=== PATIENT | female | born 2000 | race Caucasian/White ===

== ENCOUNTER → 2022-01-16 | Outpatient (CLI) | payer BC ==
[2022-01-16 18:26] LABS: Basophils # (A) 0.03 X 10*3/uL (0.00-0.10); Basophils % (A) 0.5 %; Eosinophils # (A) 0.33 X 10*3/uL (0.04-0.35); Eosinophils % (A) 5.2 %; HCT 50.5 % (37.2-46.3); HGB 15.8 g/dL (12.0-15.0); Immature Grans, Automated 0.2 %; Lymphocytes # (A) 2.45 X 10*3/uL (0.90-5.00); Lymphocytes % (A) 38.5 %; MCH 27.3 pg (27.0-32.0); MCHC 31.3 g/dL (32.0-37.0); MCV 87.4 fL (80.0-97.0); Mean Platelet Volume 9.4 fL (9.5-12.2); Monocytes # (A) 0.63 X 10*3/uL (0.20-1.00); Monocytes % (A) 9.9 %; NRBC Per 100 WBC 0 /100 WBCS (0.0-0.0); Neutrophils # (A) 2.91 X 10*3/uL (1.80-7.70); Neutrophils % (A) 45.7 %; Platelet Count 305 X 10*3/uL (140-440); RBC 5.78 X 10*6/uL (4.10-5.20); RDW 13.7 % (11.5-14.5); WBC 6.36 X 10*3/uL (4.50-10.00)
[2022-01-16 18:45] LABS: ALT 39 U/L (8-44); AST 42 U/L (13-35); African American GFR (CKD) 145.6 (60.0-200.0); Albumin 4.8 g/dL (3.8-4.9); Albumin/Globulin Ratio 1.85 (1.60-3.17); Alkaline Phosphatase 117 U/L (41-126); BUN/Creat Ratio 13.57 Ratio (12.00-20.00); Blood Urea Nitrogen 9.5 mg/dL (9.0-27.0); Calcium 9.8 mg/dL (8.7-10.3); Carbon Dioxide 27.6 mmol/L (20.0-27.5); Chloride 101 mmol/L (96-109); Globulin 2.6 g/dL (1.6-3.3); Glucose 79 mg/dL (70-110); Non-African American GFR(CKD) 125.6 (60.0-200.0); Potassium 4.6 mmol/L (3.5-5.5); Sodium 139 mmol/L (135-145); Total Protein 7.4 g/dL (6.2-8.2)
[2022-01-16 19:14] LABS: Testosterone >1500.00 ng/mL (9.01-47.94)
[2022-01-17 14:23] LABS: Estrogens Total 185 pg/mL
== END | disposition home or self-care (01) ==
LOC: LABWHC1 10:56
PROVIDERS: ATTEND Physician Assistant
DX: E34.8 Other specified endocrine disorders (principal); F64.9 Gender identity disorder, unspecified; L68.0 Hirsutism; N91.2 Amenorrhea, unspecified
CPT/HCPCS: 36415; 80053; 82642; 82672; 83036; 84403; 85025